=== PATIENT | female | born 1950 | race Caucasian/White ===

== ENCOUNTER 2025-02-18 14:10 | Outpatient (RCR) | payer OTHER, SELFPAY | END 2025-02-18 23:59 | disposition home or self-care (01) | LOC: RPT 14:10 | PROVIDERS: ATTENDING PHYSICIAN Orthopaedic Surgery; FAMILY PHYSICIAN Family Medicine | DX: Z47.1 Aftercare following joint replacement surgery (principal); M16.11 Unilateral primary osteoarthritis, right hip; M25.551 Pain in right hip; Z73.6 Limitation of activities due to disability; R26.89 Other abnormalities of gait and mobility; M62.81 Muscle weakness (generalized); Z96.641 Presence of right artificial hip joint | CPT/HCPCS: 97010; 97110; 97161; 97530 ==

== ENCOUNTER 2025-03-18 13:16 | Outpatient (RCR) | payer OTHER, SELFPAY | END 2025-03-18 23:59 | disposition home or self-care (01) | LOC: RPT 13:16 | PROVIDERS: ATTENDING PHYSICIAN Orthopaedic Surgery; FAMILY PHYSICIAN Family Medicine | DX: Z47.1 Aftercare following joint replacement surgery (principal); M16.11 Unilateral primary osteoarthritis, right hip; M25.551 Pain in right hip; Z73.6 Limitation of activities due to disability; R26.89 Other abnormalities of gait and mobility; M62.81 Muscle weakness (generalized); Z96.641 Presence of right artificial hip joint | CPT/HCPCS: 97010; 97110; 97530 ==

== ENCOUNTER 2025-04-17 13:01 | Outpatient (RCR) | payer OTHER, SELFPAY | END 2025-04-17 23:59 | disposition home or self-care (01) | LOC: RPT 13:01 | PROVIDERS: ATTENDING PHYSICIAN Orthopaedic Surgery; FAMILY PHYSICIAN Family Medicine | DX: Z47.1 Aftercare following joint replacement surgery (principal); M16.11 Unilateral primary osteoarthritis, right hip; M25.551 Pain in right hip; Z73.6 Limitation of activities due to disability; R26.89 Other abnormalities of gait and mobility; M62.81 Muscle weakness (generalized); Z96.641 Presence of right artificial hip joint | CPT/HCPCS: 97110; 97530 ==

== ENCOUNTER 2025-04-22 12:11 | Outpatient (RCR) | payer OTHER, SELFPAY | END 2025-04-22 14:45 | disposition home or self-care (01) | LOC: RPT 12:11 | PROVIDERS: ATTENDING PHYSICIAN Orthopaedic Surgery; FAMILY PHYSICIAN Family Medicine | DX: Z47.1 Aftercare following joint replacement surgery (principal); M16.11 Unilateral primary osteoarthritis, right hip; M25.551 Pain in right hip; Z73.6 Limitation of activities due to disability; R26.89 Other abnormalities of gait and mobility; M62.81 Muscle weakness (generalized); Z96.641 Presence of right artificial hip joint | CPT/HCPCS: 97110; 97530 ==

== ENCOUNTER 2025-05-04 17:49 | Emergency (ER) | payer OTHER, SELFPAY ==
[2025-05-04] VITALS (8 sets, daily range): BP systolic 108–141; BP diastolic 65–84
[2025-05-04 18:48] LABS: Hematocrit 24.3 % (37.0-47.0); Hemoglobin 7.0 g/dL (12.0-16.0); Mean Corp Hgb Conc. 28.8 g/dL (33.0-37.0); Mean Corpuscular Volume 78.1 fL (81.0-99.0); Platelet Count 514 10^3/uL (130-400); Red Cell Dist. Width 16.0 % (11.5-14.5)
[2025-05-04 19:04] LABS: ALT (SGPT) 12 U/L (0-35); AST (SGOT) 16 U/L (14-36); Albumin 4.1 g/dl (3.5-5.0); Alkaline Phosphatase 89 U/L (38-126); Blood Urea Nitrogen 12 mg/dl (7-17); Calcium 8.9 mg/dl (8.4-10.2); Carbon Dioxide 23 mmol/L (22-30); Chloride 107 mmol/L (98-107); Glucose 99 mg/dl (70-99); Potassium 3.8 mmol/L (3.5-5.1); Sodium 136 mmol/L (135-145); Total Protein 7.4 g/dl (6.3-8.2); eGFR > 60.00
[2025-05-04 19:21] LABS: Nucleated Red Blood Cells % 0 %
[2025-05-04 19:24] LABS: Anisocytosis 1+; Hypochromasia 2+; Macrocytosis 1+; Normal RBC Morphology No; Ovalocytes Occasional; Tear Drop Red Blood Cells Occasional
--- NOTE | 2025-05-04 19:50 | ED.GENMED ---
History of Present Illness
General
Chief Complaint: Abnormal Lab Value
Source: patient
Exam Limitations: none
Time Seen by Provider: 05/04/25 19:14
Nursing documentation reviewed up to this point in time: agreed with
History of Present Illness
History of Present Illness:
74-year-old female with past medical history as noted presents to the ER for evaluation of anemia found on outpatient labs. Patient reports that she has a long history of chronic anemia and follows with Dr. Posada as an outpatient. She says
that she had been receiving regular iron infusions. She said she had a right total hip replacement in January with Dr. Ochoa and since then has had progressive fatigue, short of breath, achiness. She says that these are her typical anemia
yanira ultimately had outpatient lab work drawn last and was found to have a hemoglobin of 6.7 and received a call today to go to the ER. She said she has not had any bleeding recently�she says that last week she had 1 episode of
dark diarrhea but no additional episodes since and aside from occasional hemorrhoidal bleeding no bright red blood per rectum. She denies any other acute complaints. She had been on a full dose aspirin for a few months after her hip surgery which
she discontinued last week, not on any other blood thinners.
Past History
Past History
ED Past Medical History: None
ED Past Surgical History: None
Social History
Tobacco: Non-smoker
Alcohol: None
Drug: None
Personal:
Living: with family
Review of Systems
Review of Systems
All Other Systems: ROS reviewed and negative except as documented in HPI and ROS
Constitutional: Reports fatigue; Denies fever
Respiratory: Reports trouble breathing
Cardiac: Denies chest pain
ABD/GI: Denies abdominal pain, vomiting, bloody stools or black stools
: Denies flank pain
Musculoskeletal: Reports muscle pain; Denies neck pain or back pain
Neurological: Reports dizzy and headache
Phy Exam
Physical Exam
Physical Exam:
General: Awake, alert, oriented x3; no acute distress
Head: Normocephalic, atraumatic
Eyes: Pale conjunctiva
Throat: Airway intact, handling secretions
Neck: Trachea midline
Lungs: Clear to auscultation bilaterally, no wheezing, rales, rhonchi
Heart: Regular rate and rhythm, no murmurs, gallops, or rubs
Abd: Soft, non distended, nontender
Rectal: External hemorrhoids noted no bleeding; brown stool in the rectal vault which is Hemoccult negative
Neuro: Grossly intact
Skin: Somewhat pale, no rash
Extremities: No edema in extremities, equal pulses in all extremities
Scores
Heart Failure Risk
Heart Failure Risk Score: Not Applicable
Heart Score for Chest Pain Patients
STEMI patient?: Not applicable
Withdrawal Assessment of Alcohol
Withdrawal Assessment Completed?: Not applicable
Course
Orders/Labs/Results
Orders:
Orders
05/04/25 18:28
Type And Crossmatch [Type+Screen] Urgent
CMP [Comprehensive Metabolic Panel] Urgent
Complete Blood Count/With Diff Urgent
05/04/25 19:15
B12 [Vitamin B12] Urgent
Ferritin Urgent
Folate Urgent
Iron Urgent
Reticulocyte Count Urgent
Total Iron Binding Urgent
05/04/25 19:36
* Blood Bank Products Urgent
Blood Bank Products: *Packed RBC Leuko (PRBC's
Quantity: 2
Transfuse Today: Yes
Reason: Anemia
Abnormal Lab Results
05/04/25
18:28
RBC 3.11 L 10^6/uL
(4.20-5.40)
Hgb 7.0 L g/dL
(12.0-16.0)
Hct 24.3 L %
(37.0-47.0)
MCV 78.1 L fL
(81.0-99.0)
MCH 22.5 L pg
(27.0-31.0)
MCHC 28.8 L g/dL
(33.0-37.0)
RDW 16.0 H %
(11.5-14.5)
Plt Count 514 H 10^3/uL
(130-400)
Absolute Monos (auto) 1.0 H 10^3/uL
(0.1-0.6)
Monocytes % 11.5 H %
(1.7-9.3)
05/04/25 18:28
05/04/25 18:28
Vital Signs
Initial and Last Documented VS:
Initial Vital Signs
Temp Pulse Resp BP Pulse Ox
36.7 C 87 18 141/81 98
05/04/25 18:06 05/04/25 18:06 05/04/25 18:06 05/04/25 18:06 05/04/25 18:06
Last Documented Vital Signs
Temp Pulse Resp BP Pulse Ox
36.7 C 77 15 134/70 100
05/04/25 18:06 05/04/25 19:30 05/04/25 19:30 05/04/25 19:13 05/04/25 19:30
MDM/Problems Addressed
Differential Diagnosis Includes:
Symptomatic anemia
MDM/Problems Addressed:
74-year-old female presents to the ER for evaluation of acute on chronic anemia. Has had progressive anemia symptoms since surgery in January had outpatient labs drawn last week which showed a hemoglobin of 6.7. She had 1 episode of dark stools
earlier last week but has not had any other GI bleeding forted. She is Hemoccult negative today. She was on aspirin after surgery but no longer on any blood thinners. Vital signs here are normal. Exam as above. Labs were sent off including a
CBC which shows a hemoglobin of 7.0�essentially stable from last . Chemistry no clinically significant abnormalities�notably normal BUN. Will plan to transfuse 2 units of PRBCs for symptomatic anemia. Discussed with hematology�will
discharge after transfusion to follow-up for chronic anemia on outpatient basis.
Chronic conditions affecting care:
Anemia
*Pulse Oximetry
SaO2: 100
Oxygen Mode of Delivery: Room air
Patient hypoxic: no (100%)
*Critical Care Note
Total Time (30-74mins, 75-104mins- exclusive of procedures): Not Applicable
Data Reviewed
Source: patient and records
Patient Management
Discussion with other providers: District Sales Coordinator (Discussed with malt house loader)
ED Attending Note
-
Portions of this chart may have been created with voice recognition software.� Occasional wrong word or��sound alike� substitutions may have occurred due to the inherent limitations of voice recognition software.
Discharge Plan
Departure
Prescriptions:
No Action
hydrocodone-acetaminophen [Vicodin] 1 EACH tablet
1 ea PO Q4HPRN PRN (Reason: severe pain) Qty: 15 0RF
Referrals:
Dutch Vyas MD [Family Provider, Family Practice]
Discharge Date and Time
Print Language: SENEGALESE
[2025-05-04 20:00] LABS: Reticulocyte Count 1.8 % (0.4-2.8)
[2025-05-04 20:21] LABS: Iron 22 ug/dl (37-170)
[2025-05-04 20:31] LABS: Total Iron Binding Capacity 411 ug/dl (265-497)
[2025-05-04 20:57] LABS: Ferritin 6.0 ng/ml (11.1-264.0)
[2025-05-04 21:29] LABS: Folate 10.6 ng/ml (2.76-20); Vitamin B12 741 pg/ml (239-931)
[2025-05-05] VITALS (7 sets, daily range): BP systolic 124–139; BP diastolic 62–70
== END 2025-05-05 01:50 | disposition home or self-care (01) ==
LOC: EMR 17:49
PROVIDERS: Emergency Medicine; EMERGENCY PHYSICIAN Emergency Medicine; FAMILY PHYSICIAN Family Medicine
DX: D64.9 Anemia, unspecified (principal); K64.4 Residual hemorrhoidal skin tags; Z96.641 Presence of right artificial hip joint
CPT/HCPCS: 99285; 36430; 80053; 82607; 82728; 82746; 83540; 83550; 85025; 85045; 86850; 86900; 86901; 86920; P9016